=== PATIENT | female | born 1970 | race Caucasian/White ===

== ENCOUNTER → 2021-09-09 | Outpatient (CLI) | payer BC ==
[~2021-09-09] VITALS: Ht 62 cm; Wt 83.0 kg
[~2021-09-09] MED LIST: ACETAMINOPHEN 500 MG TAB (TYLENOL) PO PRN; EPINEPHrine INJECTION 1 MG/ML AMP IM PRN; ONDANSETRON 4 MG/2 ML (SDV) Z0FRAN IV PRN; SOTROVIMAB 500 MG/NS 100 ML IVPB IV ONE; diphenhydrAMINE 50 MG/ML INJ (BENADRYL) IV PRN
[2021-09-09 09:35] VITALS: BP 126/81
== END ==
LOC: INFUSION 08:45
PROVIDERS: ATTEND Nurse Practitioner Family
DX: U07.1 COVID-19 (principal)

== ENCOUNTER → 2022-05-20 | Outpatient (CLI) | payer BC ==
--- NOTE | 2022-05-20 17:45 | Diagnostic Imaging Report ---
INDICATION: Neck pain. Time of Exam: 11:05 AM AP, lateral, both oblique as well as odontoid views of the cervical spine were obtained. Curvature and alignment are normal. There is degenerative disc disease at C5-C6 level with mild disc space narrowing and marginal spurring. No fractures are seen. Prevertebral tissues are normal. Neural foramina appear patent. Odontoid is intact. IMPRESSION: C5-C6 degenerative disc disease. No acute bony abnormality is detected. Dictated by: Dictated on workstation # [id number]
== END ==
LOC: RAD FS 10:42
PROVIDERS: ATTEND Registered Nurse Emergency
DX: M50.322 Other cervical disc degeneration at C5-C6 level (principal)
CPT/HCPCS: 72050